=== PATIENT | male | born 1985 | race Caucasian/White ===

== ENCOUNTER 2017-02-24 18:54 | Emergency (ER) | payer SELFPAY ==
[~2017-02-24] VITALS: Ht 167.6 cm; Wt 73.0 kg
[~2017-02-24 18:54] MED LIST: BACT800T5 PO
[2017-02-24 18:58] VITALS: BP 144/81; PULSE 100; RESP 18; TEMP 99; O2SAT 96
[2017-02-24] MEDS ORDERED: ACYC400T PO (19:37)
[2017-02-24] MEDS ORDERED: BACT800T5 PO (19:37)
--- NOTE | 2017-02-24 19:37 | PD ---
HPI Chief Complaint: Lump, Cyst, Hernia Time Seen by Provider: 19:18 Travel History International Travel<30 days: No Contact w/Intl Traveler<30days: No Traveled to known affect area: No History of Present Illness HPI 31-year-old male patient presents to the ER today because he states that he has a lesion underneath his scrotal area that has been going on and off for the past 4 months. He states that it feels like a lump that calms and then drains and then goes away and then comes back again. He states it is irritated and tender. He thinks that sometimes it drains from the anal areas well. He denies any fevers or any other issues. Modifying Factors: None Associated Signs & Symptoms: Genital area lump that has been coming and going for the past 4 months Risk Factors: None PFSH Past Medical History Autoimmune Disease: No Anxiety: Yes Depression: Yes Cancer: No Cardiovascular Problems: No Diabetes: No Diminished Hearing: No Genitourinary: No Immune Disorder: No Musculoskeletal: No Neurologic: No Psychiatric: Yes Reproductive: No Respiratory: Yes (SLEEP DISORDER) Thyroid Disease: No Past Surgical History Body Medical Devices: SLEEPING DISORDER. Other Surgery: Yes (LEFT THIGH) Social History Alcohol Use: Yes (2 X WEEK) Tobacco Use: Yes (1/2 PPD) Substance Use: Yes (POSITIVE FOR MARIJUANA) Allergies-Medications (Allergen,Severity, Reaction): Coded Allergies: No Known Allergies (Verified , 02/24/17) Reported Meds & Prescriptions Reported Meds & Active Scripts Active Acyclovir 400 Mg Tab 400 Mg PO TID 7 Days Bactrim DS (Sulfamethoxazole-Trimethoprim) 800-160 Mg Tab 1 Tab PO BID Review of Systems Except as stated in HPI: all other systems reviewed are Neg Physical Exam Narrative GENERAL: Well-nourished, well-developed young white male patient in no acute distress. SKIN: Focused skin assessment warm/dry. HEAD: Normocephalic. EYES: No scleral icterus. No injection or drainage. NECK: Supple, trachea midline. CARDIOVASCULAR: Regular rate and rhythm without murmurs, gallops, or rubs. RESPIRATORY: Breath sounds equal bilaterally. No accessory muscle use. GASTROINTESTINAL: Abdomen soft, non-tender, nondistended. GENITOURINARY: Circumcised. Testes descended bilaterally without evidence of rotation. There is a notable ulcerated lesion posterior to the scrotal area which is draining clear fluid. No urethral discharge. RECTAL EXAM: No masses or tenderness. MUSCULOSKELETAL: No cyanosis, or edema. Data Data Last Documented VS Vital Signs Date Time Temp Pulse Resp B/P Pulse Ox O2 Delivery O2 Flow Rate FiO2 02/24/17 18:58 99.0 100 18 144/81 96 Orders Herpes Simplex Virus Culture (02/24/17 19:25) MDM Medical Decision Making Medical Screen Exam Complete: Yes Emergency Medical Condition: Yes Medical Record Reviewed: Yes Differential Diagnosis Herpetic lesion versus perirectal abscess versus cellulitis versus abscess Narrative Course There is no palpable underlying fluid or fluctuance at this time. This does not appear to be an abscess currently. He may have some underlying cellulitis and it is unclear whether this this could be a herpetic lesion. Patient denies any new sexual contact at least for a year. Herpetic cultures were done of the lesion as precaution. At this point, my plan would be to give him treatment for possible underlying herpes versus cellulitis. Return for any worsening in symptoms as needed. The plan has been discussed with the patient and he states understanding. Diagnosis Primary Impression: Genital lesion, male Med/Other Pt SpecificInfo: Prescription(s) given Scripts Acyclovir 400 Mg [id number] Mg PO TID 7 Days Ref 0 Prov:Mariana Perales MD 02/24/17 Sulfamethoxazole-Trimethoprim (Bactrim DS)800-160 Mg Tab1 Tab PO BID #14 TAB Ref 0 Prov:Mariana Perales MD 02/24/17 Disposition: 01 DISCHARGE HOME Condition: Stable Mariana Perales MD Feb 24, 2017 19:37
== END 2017-02-24 19:48 | disposition home or self-care (01) ==
LOC: PHED 18:54
DX: L98.9 Disorder of the skin and subcutaneous tissue, unspecified (principal)
CPT/HCPCS: 87255; 99284